=== PATIENT | male | born 1955 | race Caucasian/White ===

== ENCOUNTER 2022-04-15 11:40 | Emergency (ER) | payer OTHER ==
[~2022-04-15] VITALS: Ht 177.8 cm; Wt 72.6 kg
[2022-04-15] MEDS ORDERED: AMLO2.5T4 PO (12:13)
[2022-04-15] MEDS ORDERED: TRAZ-257 PO (12:13)
[2022-04-15] MEDS ORDERED: ATOR10TA PO (12:13)
[2022-04-15] MEDS ORDERED: CITA20TA16 PO (12:13)
[2022-04-15] MEDS ORDERED: METF-886 PO (12:13)
[2022-04-15] MEDS ORDERED: MULT-594 PO (12:13)
--- NOTE | 2022-04-15 12:20 | NUR ---
PT IS IN ROOM 32A. DR MORRIS EVALUATED THE PT.
[2022-04-15 12:48] LABS: HEMATOCRIT 43.2 % (36.7-47.1); MEAN CORPUSCULAR HEMOGLOBIN 30.1 uug (23.8-33.4); MEAN CORPUSCULAR VOLUME 89.5 fL (73.0-96.2); PLATELET COUNT (AUTO) 243 K/uL (152-348)
[2022-04-15 12:58] LABS: CREATININE 0.9 mg/dL (0.6-1.3)
[2022-04-15 13:03] LABS: BILIRUBIN,TOTAL 0.4 mg/dL (0.2-1.0)
[2022-04-15] MEDS ORDERED: IOHEXOL 300MG/ML 100 ML INFUS..BTL ONE (13:28)
[2022-04-15] MEDS ORDERED: SWABABLE VALVE TRANSFER SET EA MC ONE (13:28)
[2022-04-15] MEDS ORDERED: IV NORMAL SALINE 250 ML IV ONE (13:29)
[2022-04-15 13:30] LABS: *BILIRUBIN,URIN NEGATIVE (NEGATIVE); *BLOOD, URINE NEGATIVE (NEGATIVE); *CLARITY,URINE CLEAR (CLEAR); *COLOR,URINE YELLOW (YELLOW); *KETONES,URINE NEGATIVE (NEGATIVE); *UROBILINOGEN,URINE 0.2 E.U./dl (NORMAL); LEUKOCYTE ESTERASE ,URINE NEGATIVE (NEGATIVE); NITRITE, URINE NEGATIVE (NEGATIVE); PH,URINE 5.5 (5.0-8.0); UGLUCOSE TRACE (NEGATIVE)
[2022-04-15 17:27] VITALS: BP 136/75
--- NOTE | 2022-04-15 17:27 | NUR ---
PT WAS D/C'd TO HOME. D/C INSTRUCTIONS GIVEN TO [facility] PT BY DR MORRIS.
== END 2022-04-15 17:28 | disposition home or self-care (01) ==
LOC: ER 11:40
DX: M25.552 Pain in left hip (principal); W01.0XXA Fall on same level from slipping, tripping and stumbling without subsequent striking against object, initial encounter; Y92.89 Other specified places as the place of occurrence of the external cause; R27.0 Ataxia, unspecified; Z87.820 Personal history of traumatic brain injury; E11.9 Type 2 diabetes mellitus without complications; Z79.84 Long term (current) use of oral hypoglycemic drugs; K44.9 Diaphragmatic hernia without obstruction or gangrene; I51.7 Cardiomegaly; D73.9 Disease of spleen, unspecified; N28.1 Cyst of kidney, acquired; N40.0 Benign prostatic hyperplasia without lower urinary tract symptoms
CPT/HCPCS: 99285; 70450; 71045; 80053; 81003; 85025; 85610; 36415; 93005; 74177; Q9967; A4663